=== PATIENT | male | born 1960 | race Caucasian/White ===

== ENCOUNTER 2016-07-02 09:58 | Inpatient (IN) | payer BC, OTHER ==
[~2016-07-02] VITALS: Ht 198.1 cm; Wt 106.6 kg
[2016-07-02] VITALS (7 sets, daily range): BP systolic 143–161; BP diastolic 75–103
[~2016-07-02 09:58] MED LIST: AMLO10TA2 PO; CLON0.1T14 PO; HYDR-3895 PO; LIDO30AD10 TD; METH-33 PO
--- NOTE | 2016-07-02 10:30 | NUR ---
PRE ADMISSION NOTE: 55 yo male re-admitted to [facility] for Heroin and marijuana dependence. Pt is alert and oriented X4. Color good, skin warm and dry. Respirations even and unlabored. VS: 161/103 P: 54 RR: 16 Pulse OX: 100% T: 98.3 Drug Use: Heroin 1/2 g /day X 1 month snort last use 07-02-16 3/10 of a gram Marijuana "2 blunts" daily last use 07-02-16 "1 blunt"
--- NOTE | 2016-07-02 11:00 | NUR ---
ADMISSION NOTE: 55 yo male re-admitted to [facility] for Heroin and marijuana dependence under the care of Dr. Drake. Pt is alert and oriented X4. Color good, skin warm and dry. Respirations even and unlabored. VS: B/P 161/103 P: 54 RR: 16 Pulse OX: 100% T: 98.3 Initial COWS 2. Pt is 6 feet 6 inches tall and weighs 235 pounds. Pt denies any allergies to medication or food. Skin is intact. Pt has medical history of hypertension and states he has not been taking his B/P meds. Pt has no home medication. Pt denies having a PCP. Denies seizure history. Pt was admitted to [facility] in Mar 2016. States he was sober for about 6 weeks then relapsed. Pt is currently mildly intoxicated without signs of withdrawal. Pt evaluated by Dr. Drake and will start a 4 day Subutex taper in AM. Drug History: Heroin 1/2 g daily for 1 month snort Last use today 3/10 of a gram prior to being admitted Marijuana "2 blunts" daily X 1 month Last use today "1 blunt"
[2016-07-02 11:12] LABS: *AMPHETAMINE, URINE NEGATIVE (NEGATIVE); *BARBITURATE, URINE NEGATIVE (NEGATIVE); *CANNABINOID, URINE POSITIVE (NEGATIVE); *COCCAINE, URINE NEGATIVE (NEGATIVE); *OPIATE, URINE POSITIVE (NEGATIVE); *PHENCYCLIDINE SCREEN,URINE NEGATIVE (NEGATIVE)
[2016-07-02] MEDS ORDERED: HYDROXYZINE PAMOATE 25 MG CAPSULE PO PRN (11:30)
[2016-07-02] MEDS ORDERED: LOPERAMIDE HCL 2 MG CAPSULE PO PRN ×2 (11:30)
[2016-07-02] MEDS ORDERED: diphenhydrAMINE 50 MG CAPSULE PO PRN (11:30)
[2016-07-02] MEDS ORDERED: CLONIDINE HCL 0.1 MG TABLET PO PRN (11:30)
[2016-07-02] MEDS ORDERED: DICYCLOMINE HCL 20 MG TABLET PO PRN (11:30)
[2016-07-02] MEDS ORDERED: MAGNESIUM HYDROXIDE 30 ML LIQUID UDC PO PRN (11:30)
[2016-07-02] MEDS ORDERED: MAG HYDROX/AL HYDROX/SIMETH 30 ML LIQUID UDC PO PRN (11:30)
[2016-07-02] MEDS ORDERED: ACETAMINOPHEN 325 MG TABLET PO PRN (11:30)
[2016-07-02] MEDS ORDERED: ONDANSETRON ODT 4 MG TAB.RAPDIS SL PRN (11:30)
[2016-07-02] MEDS ORDERED: ONDANSETRON 4 MG/2 ML VIAL IM PRN (11:30)
[2016-07-02] MEDS ORDERED: MIRALAX 17 GM POWD.PACK PO PRN (11:30)
[2016-07-02] MEDS ORDERED: BUPRENORPHINE HCL 2 MG TAB.SUBL SL PRN (11:30)
[2016-07-02] MEDS ORDERED: IBUPROFEN 600 MG TABLET PO PRN (11:30)
[2016-07-02] MEDS: AMLODIPINE 10 MG TABLET PO SCH (11:49)
[2016-07-02 13:26] LABS: ALANINE AMINOTRANSFERASE 20 U/L (16-63); ALKALINE PHOSPHATASE 96 U/L (50-136); ASPARTATE AMINOTRANSFERASE 15 U/L (15-37); BILIRUBIN,TOTAL 0.3 mg/dL (0.2-1.0); CARBON DIOXIDE 31 mmol/L (21-32); CHLORIDE 107 mmol/L (98-107); GLUCOSE 88 mg/dL (74-106); MAGNESIUM 2.1 mg/dL (1.8-2.4); POTASSIUM 4.1 mmol/L (3.5-5.1); UREA NITROGEN, BLOOD 13 mg/dL (7-18)
[2016-07-02 13:30] LABS: BASOPHILS # (AUTO) 0.1 K/uL (0.0-8.0); BASOPHILS % (AUTO) 1.3 % (0.0-2.0); EOSINOPHILS # (AUTO) 0.2 K/uL (0.0-0.7); EOSINOPHILS % (AUTO) 4.9 % (0.0-7.0); HEMATOCRIT 41.6 % (40-50); HEMOGLOBIN 13.8 G/DL (14.0-18.0); LYMPHOCYTES # (AUTO) 1.4 K/UL (0.8-4.8); LYMPHOCYTES % (AUTO) 33.1 % (20.5-51.5); MEAN CORPUSCULAR HEMOGLOBIN 30.2 UUG (27.0-31.0); MEAN CORPUSCULAR HGB CONC 33 g/dL (32.0-37.0); MEAN CORPUSCULAR VOLUME 91.3 FL (82.0-92.0); MONOCYTES # (AUTO) 0.3 K/UL (0.1-1.30); NEUTROPHILS # (AUTO) 2.2 K/UL (1.8-8.9); NEUTROPHILS % (AUTO) 53.7 % (38.5-71.5); PLATELET COUNT (AUTO) 233 K/UL (150-450); RED BLOOD CELL COUNT(AUTO) 4.56 MIL/UL (4.7-6.1); WHITE BLOOD COUNT (AUTO) 4.2 K/UL (4.0-11.2)
[2016-07-02 13:36] LABS: THYROID STIMULATING HORMONE 0.393 mIU/mL (0.358-3.740)
[2016-07-02 13:56] LABS: ETHANOL < 3 MG/DL (0-0)
--- NOTE | 2016-07-02 16:04 | NUR ---
Pt still sleeping
[2016-07-02] MEDS: METHOCARBAMOL 750 MG TABLET PO PRN (17:03)
--- NOTE | 2016-07-02 17:05 | NUR ---
Pt c/o severe muscle aches, abdominal cramping, sweating, anxiety. COWS 14 Subutex 4mg sl and Robaxin 750mg po prn administered.
--- NOTE | 2016-07-02 17:50 | NUR ---
Pt states feels slightly improved after Subutex and Robaxin prn. Still with withdrawal symptoms. Clonidine 0.1mg po prn given
--- NOTE | 2016-07-02 18:45 | NUR ---
States feels improved after Clonidine 0.1mg po prn
--- NOTE | 2016-07-02 18:56 | NUR ---
END OF SHIFT NOTE: Report given to third shift lieutenant nurse. 55 yo male re-admitted to [facility] for Heroin and marijuana dependence under the care of Dr. Drake. Pt on prn medications only. To start 4 day Subutex taper in AM. Pt is alert and oriented X4. Color good, skin warm and dry. Respirations even and unlabored. Pt has hx of HTN. Last B/P 148/92 Last COWS 14 @ 1700. Robaxin 750mg po prn, Clonidine 0.1mg po prn and Subutex 4mg sl prn given @ 1700. . Safety precautions observed. Call light within reach.
--- NOTE | 2016-07-02 19:40 | NUR ---
START OF SHIFT Received report from day shift nurse. Pt is lying in bed resting. He is a 55 yo male admitted to [facility] today for opiate dependence. He is A&O x4 and ambulatory. NKA, full code, regular diet. He has a PMH of HTN. On admission he admitted to using heroin 0.5 grams per day and marijuana 2 blunts per day. He will start at 4 day Subutex taper tomorrow. Upon entering the pt's room he is observed to be restless in bed and moaning in discomfort. He states I'm hot and hold and I can't sleep. PRN's available for the management of withdrawal symptoms. Fall precautions in place. Bed is down with call light in reach.
[2016-07-02] MEDS ORDERED: LORAZEPAM 1 MG TABLET PO ONE (19:45)
[2016-07-02] MEDS ORDERED: BUPRENORPHINE HCL 2 MG TAB.SUBL SL ONE ×4 (19:45→23:00)
--- NOTE | 2016-07-02 19:47 | NUR ---
Communication/One time Subutex and Ativan/PRN Motrin. Pt is restless in bed and moaning in discomfort. He states, I'm hot and hold and I can't sleep. He has moist skin, goosebupms, and dilated pupils. He reports generalized body aches 09/15. B/P 149/96 and HR 79. COWS score 19. Contacted Dr. Drake with orders received for one time Subutex and Ativan. PRN Motrin also administered. Safety measures in place.
[2016-07-02] MEDS ORDERED: LORAZEPAM 1 MG TABLET ONE (19:54)
--- NOTE | 2016-07-02 20:47 | NUR ---
One time Subutex and Ativan/PRN Motrin reassessment Pt reports that symptoms are somewhat relieved. He is able to lie still in bed. Pain is relieved. He continues to have moist skin. COWS score 7. Safety measures in place.
--- NOTE | 2016-07-02 22:54 | NUR ---
MD Communication/One time Subutex and Baclofen/PRN Vistaril Pt is frequently shifting in bed and moaning in discomfort. He is tossing and turning and unable to keep his legs still. He reports mild body aches, chills, restlessness, and is noted with occasional jerking movements, moist skin, and goose bumps. COWS score 18. Contacted Dr. Drake. Orders received for one time Subutex and Baclofen. PRN Vistaril also administered.
[2016-07-02] MEDS ORDERED: BACLOFEN 20 MG TABLET ONE (22:59)
[2016-07-02] MEDS ORDERED: BACLOFEN 20 MG TABLET PO ONE (23:00)
[2016-07-03] VITALS: BP 134/99
--- NOTE | 2016-07-03 | NUR ---
One time Subutex and Baclofen/PRN Vistaril reassessment Medications effective. Pt is lying still in bed. COWS score reduced to 4.
[2016-07-03 04:00] VITALS: BP 112/84
--- NOTE | 2016-07-03 04:00 | NUR ---
0400 COWS deferred Pt is lying in bed resting with eyes closed. Respirations even and unlabored. Vital signs obtained. COWS ordered Q4HWA.
--- NOTE | 2016-07-03 07:15 | NUR ---
END OF SHIFT Report provided to day shift nurse. Pt is lying in bed resting. He is a 55 yo male admitted to [facility] today for opiate dependence. He is A&O x4 and ambulatory. NKA, full code, regular diet. He has a PMH of HTN. On admission he admitted to using heroin 0.5 grams per day and marijuana 2 blunts per day. He will start at 4 day Subutex taper today. Pt experienced s/s of withdrawal. PRN Motrin and Vistaril administered. One time Subutex x2, one time Ativan, and one time baclofen administered per MD orders. Last COWS was 4. He drank 480mL and slept for 8 hours. Fall precautions in place. Bed is down with call light in reach.
[2016-07-03 08:00] VITALS: BP 140/85
--- NOTE | 2016-07-03 08:15 | NUR ---
START OF SHIFT: RECEIVED PT LAYING IN BED ASLEEP. VS WNL. RESPIRATIONS EVEN AND UNLABORED. BED LOW AND LOCKED. CALL WELSH IN REACH. WILL CONTINUE TO MONITOR AND OFFER SUPPORT.
[2016-07-03] MEDS ORDERED: TUBERCULIN,PURIF.PROT.DERIV. 5 TU/0.1 ML TEST ID ONE ×2 (09:00→13:00)
--- NOTE | 2016-07-03 10:00 | NUR ---
PT CONTINUES TO SLEEP AND STATES HE DOES NOT WANT TO WAKE UP YET. WILL ADMINISTER MEDS LATE. CHARGE NURSE AND MD MADE AWARE.
[2016-07-03] MEDS: MULTIVITAMINS,THERAPEUTIC TABLET PO SCH (10:58)
[2016-07-03] MEDS: FOLIC ACID 1 MG TABLET PO SCH (10:59)
[2016-07-03] MEDS: AMLODIPINE 10 MG TABLET PO SCH (10:59)
[2016-07-03] MEDS: METHOCARBAMOL 750 MG TABLET PO PRN (10:59)
[2016-07-03] MEDS: BUPRENORPHINE HCL 2 MG TAB.SUBL SL SCH ×3 (11:00→20:35)
[2016-07-03] MEDS: LIDOCAINE 5% PATCH TD SCH (11:00)
--- NOTE | 2016-07-03 11:05 | NUR ---
PT IS A/O X 4. PT REPORTS MUSCLE ACHES,CHILLS,STOMACH CRAMPS AND ANXIETY. PRN ROBAXIN GIVEN. COWS 13. SUBUTEX AND SCHEDULED MEDS GIVEN LATE. AWARE . PPD PLANTED TO RFA. ENCOURAGED INCREASED FLUIDS AND REST TODAY.WILL CONTINUE TO MONITOR AND PROVIDE SUPPORT.
[2016-07-03 12:00] VITALS: BP 122/74
--- NOTE | 2016-07-03 12:05 | NUR ---
PT STATES PRN ROBAXIN WAS EFFECTIVE FOR STOMACH CRAMPS AND MUSCLE ACHES.
[2016-07-03] MEDS ORDERED: KETOROLAC TROMETHAMINE 30 MG INJ IM PRN (15:45)
[2016-07-03 16:00] VITALS: BP 128/77
--- NOTE | 2016-07-03 19:21 | NUR ---
END OF SHIFT: PT CONTINUES ON SUBUTEX TAPER. LAST COWS 4. HE STAYED IN BED RESTING MOST OF SHIFT.PPD PLANTED TO RFA. HE C/O BODY ACHES,STOMACH CRAMPS,CHILLS,ANXIETY AND SWEATS IN AM. PRN ROBAXIN GIVEN AND EFFECTIVE. HE WAS NON COMPLIANT WITH INCREASING FLUIDS AND STATED HE WAS SLEEPING A LOT TODAY. WILL PASS SHIFT REPORT TO ONCOMING NIGHT NURSE.
--- NOTE | 2016-07-03 19:22 | NUR ---
Start of shift note Received report from day shift nurse. Pt is a 55 yo male, A+Ox4, presenting to [facility] for Opiate/Marijuana dependence. Pt has NKA, is Full code status, and on Regular diet. Pt has HX of HTN. Pt is on Fall precautions. Pt is on 4 day Subutex taper, tolerated well. No s/s of distress noted at this time. Respirations even and unlabored. Will continue to monitor.
[2016-07-03 20:09] VITALS: BP 120/75
[2016-07-03] MEDS: GABAPENTIN 300 MG CAPSULE PO SCH (20:35)
[2016-07-03] MEDS: BACLOFEN 10 MG TABLET PO SCH (20:35)
[2016-07-03] MEDS: DICYCLOMINE HCL 20 MG TABLET PO SCH (20:35)
[2016-07-04 00:18] VITALS: BP 131/89
[2016-07-04 04:08] VITALS: BP 119/77
--- NOTE | 2016-07-04 07:02 | NUR ---
End of shift note Pt is a 55 yo male, A+Ox4, presenting to [facility] for Opiate/Marijuana dependence. Pt has NKA, is Full code status, and on Regular diet. Pt has HX of HTN. Pt is on Fall precautions. Pt is on 4 day Subutex taper, tolerated well. Pt slept for a total of 11 HRS. Last COWS: 2 @0400. No s/s of distress noted at this time. Respirations even and unlabored. Will endorse to day shift nurse.
--- NOTE | 2016-07-04 07:55 | NUR ---
START OF SHIFT: RECEIVED PT A/O X 4. HE REPORTS HE SLEPT VERY WELL AND FEELS A LITTLE BETTER. HE C/O MILD BODY ACHES,IRRITABILITY AND RESTLESSNESS.HE PRESENTS WITH ANXIOUS MOOD AND GUARDED AFFECT. ENCOURAGED INCREASED FLUIDS TO ASSIST IN FACILITATING DETOX PROCESS. ENCOURAGED GROUP ATTENDANCE TO IMPROVE COPING SKILLS AND PREVENT RELAPSE. WILL CONTINUE TO MONITOR AND OFFER SUPPORT. Addendum: 07/04/16 at 0901 by ABRAM LEWIS RN cows 4
[2016-07-04 08:00] VITALS: BP 117/69
[2016-07-04] MEDS: AMLODIPINE 10 MG TABLET PO SCH (08:24)
[2016-07-04] MEDS: DICYCLOMINE HCL 20 MG TABLET PO SCH ×3 (08:24→21:23)
[2016-07-04] MEDS: BACLOFEN 10 MG TABLET PO SCH (08:24)
[2016-07-04] MEDS: MULTIVITAMINS,THERAPEUTIC TABLET PO SCH (08:25)
[2016-07-04] MEDS: LIDOCAINE 5% PATCH TD SCH (08:25)
[2016-07-04] MEDS: FOLIC ACID 1 MG TABLET PO SCH (08:25)
[2016-07-04] MEDS: GABAPENTIN 300 MG CAPSULE PO SCH ×3 (08:25→21:23)
[2016-07-04] MEDS ORDERED: BUPRENORPHINE HCL 2 MG TAB.SUBL SL SCH (09:00)
[2016-07-04 12:00] VITALS: BP 114/66
--- NOTE | 2016-07-04 13:00 | NUR ---
COWS DEFERRED PT IS ASLEEP WITH RESPIRATIONS EVEN AND UNLABORED. BED LOCKED AND LOW WITH CALL WELSH IN REACH.
--- NOTE | 2016-07-04 14:43 | NUR ---
Clinician asked the client if he would attend the 3:30 group and he responded "Oh no, I am too much in fear". He declined to engage with this junior copywriter.
[2016-07-04] MEDS: BACLOFEN 20 MG TABLET PO SCH ×2 (14:50→21:23)
[2016-07-04] MEDS: BUPRENORPHINE HCL 2 MG TAB.SUBL SL SCH ×2 (14:50→21:23)
[2016-07-04] MEDS ORDERED: BACLOFEN 10 MG TABLET PO SCH (15:00)
[2016-07-04 16:00] VITALS: BP 122/83
--- NOTE | 2016-07-04 18:56 | NUR ---
END OF SHIFT: PT CONTINUES ON SUBUTEX TAPER. LAST COWS 2 HE STAYED IN BED RESTING MOST OF SHIFT.HE PRESENTS WITH SAD MOOD AND FLAT AFFECT. HE DENIES S/I AND H/I. HE IS EXTREMELY GUARDED HE C/O BODY ACHES BUT STATES DETOX MEDS ARE EFFECTIVE.ENCOURAGED GROUP ATTENDANCE. PT ATTENDED ONE GROUP TODAY.NO PRNS GIVEN.WILL PASS SHIFT REPORT TO ONCOMING NIGHT NURSE.
--- NOTE | 2016-07-04 19:11 | NUR ---
Start of shift note Received report from day shift nurse. Pt is a 55 yo male, A+Ox4, presenting to [facility] for Opiate/Marijuana dependence. Pt has NKA, is Full code status, and on Regular diet. Pt has HX of HTN. Pt is on Fall precautions. Pt is on 4 day Subutex taper, tolerated well. No s/s of distress noted at this time. Respirations even and unlabored. Will continue to monitor.
[2016-07-04 20:14] VITALS: BP 122/80
[2016-07-05 00:08] VITALS: BP 118/78
[2016-07-05 04:27] VITALS: BP 111/64
--- NOTE | 2016-07-05 06:57 | NUR ---
End of shift note Pt is a 55 yo male, A+Ox4, presenting to [facility] for Opiate/Marijuana dependence. Pt has NKA, is Full code status, and on Regular diet. Pt has HX of HTN. Pt is on Fall precautions. Pt is on 4 day Subutex taper, tolerated well. Pt slept for a total of 8 HRS. Last COWS: 1 @0400. No s/s of distress noted at this time. Respirations even and unlabored. Will endorse to day shift nurse.
--- NOTE | 2016-07-05 07:30 | NUR ---
Start of shift note; Received report from night nurse. Patient is a 55 year old male admitted on 07/02/16 for Opiate dependence. Patient was placed on a 4 day Subutex taper. Patient reported history of hypertension. NKA, regular diet, on a full code status. Skin is intact. Patient is on fall precaution. All safety measures secured. Will continue to monitor patient.
[2016-07-05 08:00] VITALS: BP 123/90
[2016-07-05] MEDS: GABAPENTIN 300 MG CAPSULE PO SCH ×3 (08:24→20:44)
[2016-07-05] MEDS: FOLIC ACID 1 MG TABLET PO SCH (08:24)
[2016-07-05] MEDS: BACLOFEN 20 MG TABLET PO SCH ×3 (08:24→20:44)
[2016-07-05] MEDS: MULTIVITAMINS,THERAPEUTIC TABLET PO SCH (08:24)
[2016-07-05] MEDS: DICYCLOMINE HCL 20 MG TABLET PO SCH ×3 (08:24→20:44)
[2016-07-05] MEDS: AMLODIPINE 10 MG TABLET PO SCH (08:24)
[2016-07-05] MEDS: BUPRENORPHINE HCL 2 MG TAB.SUBL SL SCH ×3 (08:24→20:45)
[2016-07-05] MEDS: LIDOCAINE 5% PATCH TD SCH (08:26)
[2016-07-05 12:00] VITALS: BP 128/84
[2016-07-05 16:00] VITALS: BP 122/85
--- NOTE | 2016-07-05 18:37 | NUR ---
End of shift note; Patient is AOX4. Patient is a 55 year old male admitted on 07/02/16 for Opiate dependence. Patient was placed on a 4 day Subutex taper. Patient reported history of hypertension. NKA, regular diet, on a full code status. Skin is intact. Patient remained compliant with treatment plan. Medications were effective in reducing withdrawal symptoms. Patient is on fall precaution. All safety measures secured.
[2016-07-05 20:00] VITALS: BP 128/88
--- NOTE | 2016-07-05 20:00 | NUR ---
Start of Shift Patient is a 55-year old, male, admitted for Opiate dependence. With PMHx of Hypertension. Patient was placed on a 4-day Subutex taper and with no adverse reactions noted. Pt with NKA, on Regular Diet and is Full Code. Pt is AAOx4 and with mild anxiety noted at this time. Pt is ambulatory with steady gait and with intact skin. Fall, universal, seizure and safety prec in place. Call light within reach. Pt verbalized understanding of teachings and instructions. Latest COWS=4. Will continue to monitor.
[2016-07-06] VITALS: BP 124/84
[2016-07-06 04:00] VITALS: BP 121/85
--- NOTE | 2016-07-06 07:05 | NUR ---
End of Shift Patient is a 55-year old, male, admitted for Opiate dependence. With PMHx of Hypertension. Patient was placed on a 4-day Subutex taper and with no adverse reactions noted. Pt with NKA, on Regular Diet and is Full Code. Pt is AAOx4 and with mild anxiety noted at this time. Pt is ambulatory with steady gait and with intact skin. Fall, universal, seizure and safety prec in place. Call light within reach. Pt verbalized understanding of teachings and instructions. Latest COWS=4, slept for 5 hours. Endorsed to AM shift nurse for continuity of care.
[2016-07-06 07:38] LABS: HEPATITIS B SURFACE AG Negative (Negative)
--- NOTE | 2016-07-06 07:44 | NUR ---
Start of shift note; Received report from night nurse. Patient is a 55 year old male admitted on 07/02/16 for Opiate dependence. Patient was placed on a 4 day Subutex taper no adverse reactions noted. Patient reported history of hypertension. NKA, regular diet, on a full code status. Skin is intact. Patient is on fall precaution. Last COWS score of 4 at 0400. All safety measures secured. Will continue to monitor patient.
[2016-07-06 08:00] VITALS: BP 121/77
[2016-07-06] MEDS: FOLIC ACID 1 MG TABLET PO SCH (08:20)
[2016-07-06] MEDS: DICYCLOMINE HCL 20 MG TABLET PO SCH ×3 (08:20→21:02)
[2016-07-06] MEDS: GABAPENTIN 300 MG CAPSULE PO SCH ×3 (08:20→21:02)
[2016-07-06] MEDS: BACLOFEN 20 MG TABLET PO SCH ×3 (08:20→21:02)
[2016-07-06] MEDS: AMLODIPINE 10 MG TABLET PO SCH (08:20)
[2016-07-06] MEDS: MULTIVITAMINS,THERAPEUTIC TABLET PO SCH (08:20)
[2016-07-06] MEDS: LIDOCAINE 5% PATCH TD SCH (08:22)
[2016-07-06] MEDS ORDERED: BUPRENORPHINE HCL 2 MG TAB.SUBL SL SCH (09:00)
[2016-07-06 12:00] VITALS: BP 123/75
[2016-07-06] MEDS ORDERED: BACL20TA PO (12:21)
[2016-07-06] MEDS ORDERED: DICY20TA28 PO (12:21)
[2016-07-06] MEDS ORDERED: DIPH50CA37 PO (12:21)
[2016-07-06] MEDS ORDERED: GABA-534 PO ×2 (12:21)
[2016-07-06] MEDS ORDERED: LIDO30AD10 TD (12:21)
[2016-07-06] MEDS ORDERED: HYDR-3895 PO (12:21)
[2016-07-06] MEDS ORDERED: FOLI1TAB16 PO (12:21)
[2016-07-06] MEDS ORDERED: IBUP-1955 PO (12:21)
[2016-07-06 16:00] VITALS: BP 120/72
--- NOTE | 2016-07-06 17:02 | NUR ---
Therapist informed client of group times. Client refused to attend because he's not feeling well.
[2016-07-06 17:36] LABS: *AMPHETAMINE, URINE NEGATIVE (NEGATIVE); *BARBITURATE, URINE NEGATIVE (NEGATIVE); *CANNABINOID, URINE POSITIVE (NEGATIVE); *COCCAINE, URINE NEGATIVE (NEGATIVE); *OPIATE, URINE NEGATIVE (NEGATIVE); *PHENCYCLIDINE SCREEN,URINE NEGATIVE (NEGATIVE)
--- NOTE | 2016-07-06 18:24 | NUR ---
End of shift note; Patient is AOX4. Patient is a 55 year old male admitted on 07/02/16 for Opiate dependence. Patient was placed on a 4 day Subutex taper. Patient reported history of hypertension. NKA, regular diet, on a full code status. Skin is intact. Patient remained compliant with treatment plan. Medications were effective in reducing withdrawal symptoms. Patient is medically cleared for discharge tomorrow. Patient is on fall precaution. All safety measures secured.
--- NOTE | 2016-07-06 18:24 | NUR ---
START OF SHIFT NOTE: Patient endorsed by day shift nurse in stable condition. Patient is a 55 year old male admitted to [facility] on 07/02/16 for Opiate Dependence, completed 4 Day Subutex Taper. Patient tolerated well. NKA, Regular Diet, Full Code, Fall Precautions. PMH: HTN, Anxiety, Depression, Substance Abuse, Tobacco Dependence. Patient denies Past Surgery History. Patient reports that he is recently has "first time detox/treatment". Upon endorsement, patient is in his room alert and oriented x4, speech is soft and clear. COWS 2: Patient is anxious and agitated. Patient denies N/V, and diarrhea. Patient denies SI/HI. VS WNL, and stable through the day, as day shift nurse reported. Patient remains compliant with treatment plan, medications, and diet regimen. Patient attended groups activities. Encourage to fluids intake, as tolerated. Breathing is even and unlabored. Patient denies chest pain and SOB. Lungs Sounds are clear bilaterally. Bowel Sounds are active in all 4 quadrants. Last bowel Movement was "today, in the morning". Skin is intake, warm and dry. Patient will discharge tomorrow, 07/07/16. UDS Test results placed in the chart. All needs met. Safety measures in the place by hospital policy: bed in the lowest position, and locked, bed rails up x2. Will continue to monitor closely.
[2016-07-06 20:00] VITALS: BP 120/70
[2016-07-07] VITALS: BP 119/65
[2016-07-07 04:00] VITALS: BP_SYST 101; BP_SYST 114; BP_SYST 94; BP_DIAS 61; BP_DIAS 66
--- NOTE | 2016-07-07 07:16 | NUR ---
END OF SHIFT NOTE: Patient endorsed to day shift nurse in stable condition. Report given. Patient is a 55 year old male admitted to [facility] on 07/02/16 for Opiate Dependence, completed 4 Day Subutex Taper. Patient tolerated well. NKA, Regular Diet, Full Code, Fall Precautions. PMH: HTN, Anxiety, Depression, Substance Abuse, Tobacco Dependence. Patient denies Past Surgery History. Last COWS at 04:00: 0. Patient denies N/V, and diarrhea. Patient denies SI/HI. VS at 04:00: T: 97'5; HR: 65; BP: 114/61, Room Air O2 Sat: 96%. RR: 14; Pain level "0/10". Patient remains compliant with treatment plan, medications, and diet regimen. Patient attended groups activities. Breathing is even and unlabored. Patient denies chest pain and SOB. Last Bowel Movement: "on 07/06/16 at the morning". Skin is intake, warm and dry. Patient will discharge today, 07/07/16. UDS Test results placed in the chart. Patient slept 6 hours 15 minutes, intake 1210 ml, voided x2. All needs met. Safety measures in the place by hospital policy: bed in the lowest position, and locked, bed rails up x2.
--- NOTE | 2016-07-07 07:35 | NUR ---
START OF SHIFT Rcvd endorsement from night nurse, client is in his room, A/O to name, place, time, he presents with anxious mood, flat affect, stating "I did not sleep well, my lower back was bothering me." He reports muscle spasm at lower back area and chills, he denies any WOLFE, N/V/D. He is schedule for discharge this am and verbalizes understanding. He had an uneventful night, no PRN's administered, last COWS 2, he slept for 6 hrs. Client is a 55 year old male, admitted 07/02/16 for opioid withdrawal, he completed 4 day Subutex taper. Side rails x 2 up/padded. Call light within reach.
[2016-07-07] MEDS: MULTIVITAMINS,THERAPEUTIC TABLET PO SCH (08:20)
[2016-07-07] MEDS: FOLIC ACID 1 MG TABLET PO SCH (08:21)
[2016-07-07] MEDS: GABAPENTIN 300 MG CAPSULE PO SCH (08:21)
[2016-07-07] MEDS: AMLODIPINE 10 MG TABLET PO SCH (08:21)
[2016-07-07] MEDS: BACLOFEN 20 MG TABLET PO SCH (08:21)
[2016-07-07] MEDS: LIDOCAINE 5% PATCH TD SCH (08:21)
[2016-07-07] MEDS: DICYCLOMINE HCL 20 MG TABLET PO SCH (08:21)
[2016-07-07 08:55] VITALS: BP 143/92
--- NOTE | 2016-07-07 09:47 | NUR ---
DISCHARGE NOTE Patient is in stable condition. Vitals WNL, client is alert and oriented x4. Skin intact. Client denies any suicidal or homicidal ideations. All discharge paperwork completed, dated, and signed. Client educated about discharge instructions and when to notify MD, client verbalized understanding. Client's last COWS 2. Patient was discharged from [facility] and taken to [facility] by ENVIRONMENTAL STUDIES PROFESSOR on 07/07/16 at 0947 am and picked up by [employer]. Patient left building with all belongings and rx. Client did not bring any home medications with him to unit. MD has been notified of client's discharge.
== END 2016-07-07 09:47 | disposition other institution (70) | DRG 895 ==
LOC: SRC 10:12
PROVIDERS: ADMIT Internal Medicine; ATTEND Internal Medicine
PROC: HZ2ZZZZ Detoxification Services for Substance Abuse Treatment (ICD-10-PCS; principal; 2016-07-02)
PROC: HZ41ZZZ Group Counseling for Substance Abuse Treatment, Behavioral (ICD-10-PCS; 2016-07-03)
PROC: HZ31ZZZ Individual Counseling for Substance Abuse Treatment, Behavioral (ICD-10-PCS; 2016-07-04)
DX: F11.23 Opioid dependence with withdrawal (principal); Z96.652 Presence of left artificial knee joint; D52.9 Folate deficiency anemia, unspecified; F12.90 Cannabis use, unspecified, uncomplicated; F17.210 Nicotine dependence, cigarettes, uncomplicated; I10 Essential (primary) hypertension
CPT/HCPCS: 36415; 70030-TC; 80307; 80349; 80361; 82746; 83735; 84443; 85025; 86580; 86592; 86705; 86803; 87340; 87806; A4663; G6040-TC